=== PATIENT | male | born 1990 | race African-American/Black ===

== ENCOUNTER 2016-10-01 17:45 | Emergency (ER) | payer SELFPAY ==
[~2016-10-01] VITALS: Ht 170.2 cm; Wt 63.0 kg
[2016-10-01] MEDS ORDERED: LIDOCAINE HCL BUFFERED 1% W/EPI 1:100,000 20 ML VIAL INJ ONE (18:45)
[2016-10-01] MEDS: POVIDONE-IODINE 30 GM OINTMENT TP ONE ×2 (18:59→19:00)
[2016-10-01] MEDS ORDERED: POVIDONE-IODINE 15 ML SOLUTION UD TP ONE (19:00)
[2016-10-01] MEDS ORDERED: BACITRACIN 0.9 GM PACKET OINTMENT TP ONE (20:45)
[2016-10-01] MEDS ORDERED: PERTUSS(ACELL),DIPH,TET VAC/PF 0.5 ML VIAL IM ONE (20:45)
[2016-10-01 21:00] VITALS: BP 112/68
== END 2016-10-01 21:10 | disposition home or self-care (01) ==
LOC: EMS 17:48
DX: S51.812A Laceration without foreign body of left forearm, initial encounter (principal); W22.8XXA Striking against or struck by other objects, initial encounter; Y93.89 Activity, other specified; Y92.89 Other specified places as the place of occurrence of the external cause; Y99.8 Other external cause status
CPT/HCPCS: 12035; 73090; 90471; 90715; 99284; J3490